=== PATIENT | female | born 1945 | race Caucasian/White ===

== ENCOUNTER → 2016-09-03 | Outpatient (CLI) | payer MEDICARE, OTHER ==
--- NOTE | 2016-09-04 06:50 | RAD ---
Procedure: 3 view left foot Exam Date: 09/03/2016 8:37 AM CDT Ordering Provider: ROGER ARZATE Clinical Indication: PAIN IN LEFT FOOT Comparison: None FINDINGS: Diffuse osteopenia. Postsurgical changes seen within the medial malleolus and distal first metatarsal from prior osteotomy for first MTP joint degenerative changes. There is moderate to severe first MTP joint degenerative changes noted.. No fracture or dislocation. No lytic or sclerotic lesions. No radiopaque foreign body. No subcutaneous gas evident. IMPRESSION: 1. Diffuse osteopenia with degenerative and postsurgical changes as above. No acute finding within the left foot. Electronically signed by: Guillermo Thomas MD 09/04/2016 6:49 AM CDT
== END | disposition home or self-care (01) ==
LOC: RAD 08:30
PROVIDERS: ATTEND Orthopaedic Surgery
DX: M79.672 Pain in left foot (principal)

== ENCOUNTER 2017-07-20 19:13 | Emergency (ER) | payer MEDICARE, OTHER ==
[2017-07-20] MEDS ORDERED: ONDANSETRON ODT 8 MG TAB SL ONE (20:00)
[2017-07-20] MEDS ORDERED: MORPHINE SULFATE INJ 10 MG/ML VIAL IM ONE (20:00)
--- NOTE | 2017-07-20 20:20 | RAD ---
Examination: XR FOOT 3 OR MORE VIEWS dated 07/20/2017 7:31 PM [facility] [employer]NER History: fall from standing left knee and foot pain Comparison: 09/03/2016 Technique: Three views of the left foot FINDINGS: Diffuse osteopenia limits evaluation for subtle fractures. Two screws within the first metatarsal from prior osteotomy. Medial malleolus fixation screws are also present. Moderate degenerative changes of the first MTP joint. No acute fracture of the right foot. No dislocation. IMPRESSION: Osteopenia with postsurgical changes as above. No acute fracture. Electronically signed by: Sarthak Galaviz MD 07/20/2017 8:20 PM [facility]
--- NOTE | 2017-07-20 20:21 | RAD ---
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 No significant joint effusion. Mild degenerative changes. IMPRESSION: No acute findings. Electronically signed by: Sarthak Galaviz MD 07/20/2017 8:20 PM [employer] RECEIVING CLERK
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
[2017-07-20 21:30] VITALS: BP 136/81; TEMP 98.2; O2SAT 95
== END 2017-07-20 21:12 | disposition home or self-care (01) ==
LOC: ER 19:13
DX: S96.912A Strain of unspecified muscle and tendon at ankle and foot level, left foot, initial encounter (principal); S83.90XA Sprain of unspecified site of unspecified knee, initial encounter; S90.32XA Contusion of left foot, initial encounter; W17.89XA Other fall from one level to another, initial encounter
CPT/HCPCS: 73560; 73630; J2270

== ENCOUNTER → 2018-04-12 | Outpatient (CLI) | payer MEDICARE, OTHER ==
--- NOTE | 2018-04-15 09:19 | RAD ---
EXAM DESCRIPTION: Foot,Left 3 Views CLINICAL HISTORY: PAIN IN LEFT FOOT COMPARISON: July 20, 2017. TECHNIQUE: AP, LATERAL, AND OBLIQUE FINDINGS: The visualized bones appear severely osteopenic. Fracture of the head of the fifth metatarsal is noted with associated soft tissue swelling. Plantar and posterior calcaneal spurs are noted.. IMPRESSION: Fracture of the head of the fifth metatarsal is noted with associated soft tissue swelling. Electronically signed by: Yunior Monge MD 04/15/2018 9:17 AM [facility]
== END ==
LOC: RAD 07:51
PROVIDERS: ATTEND Orthopaedic Surgery
DX: S92.302A Fracture of unspecified metatarsal bone(s), left foot, initial encounter for closed fracture (principal)

== ENCOUNTER → 2019-01-09 | Outpatient (CLI) | payer MEDICARE, OTHER ==
--- NOTE | 2019-01-09 11:05 | RAD ---
EXAM DESCRIPTION: Chest,2 Views: YOUSUF/ CLINICAL HISTORY: 73 years Female COUGH COMPARISON: 2 view chest x-ray 01/30/2016. TECHNIQUE: Two views. PA and Lateral. FINDINGS: Lungs: Perihilar 5 mm radiodense nodule, left mid lung, stable. Senescent changes bilateral lung bases are stable no consolidation. Pleural spaces: No effusion or pneumothorax bilaterally. Heart: Upper normal limits. Pulmonary Vascularity: Not increased. Mediastinum: Not widened. Aorta: Unremarkable. Bony Thorax/Spine: No acute bony thoracic abnormalities. Decreased bone density. IMPRESSION: Stable nodule versus pulmonary vascular structure abutting the left hilum. No acute infiltrate. Senescent lungs are stable. Electronically signed by: Pedro Zaidi MD 01/09/2019 11:04 AM CDT
--- NOTE | 2019-01-09 20:05 | CT ---
EXAM DESCRIPTION: Abdomen/Pelvis w/wo Contrast: Computed Tomography. CLINICAL HISTORY: ABDOMINAL PAIN COMPARISON: CT scan of the abdomen and pelvis with contrast 06/11/2012. TECHNIQUE: Spiral-axial scans at 5 x 5 mm intervals through the abdomen and pelvis before and after 75 mL Optiray 320 nonionic IV contrast. No oral contrast. Coronal and sagittal 6.0 mm MIP reconstructions. 5 mm Delayed helical-axial scans, liver through the pubic symphysis. No adverse reactions. Total Exam DLP 1038.4 mGy - cm. This exam was performed according to our departmental CT dose-optimization program which includes automated exposure control, adjustment of the mA and/or kV according to patient size and/or use of iterative reconstruction technique; to reduce radiation dose to as low as reasonably achievable (ALARA). FINDINGS: Lung bases and pleura: Pleural parenchymal scarring inferior lingula. Also left lower lobe with volume loss. This is stable. Liver, Stomach, Spleen, Adrenal Glands: Hypoechoic mass in the lateral superior right hepatic lobe measuring 2.2 x 2.0 cm with peripheral vascularity on the portal venous phase and almost completely enhancing on the 5 minute delayed image more than the surrounding parenchyma. This has enlarged since the prior study and is most likely a hemangioma. A similar mass with similar imaging characteristics measuring approximately 1.3 cm diameter in the inferior medial right lobe lateral to the nellie hepatis is stable since the prior study. Pancreas, Gallbladder, Ducts: Gallbladder is visualized. Minimal enhancement in the neck of the gallbladder which was also seen on the prior study. Pancreas is unremarkable. Kidneys and Ureters: Negative. Mesentery: Bilateral pararenal stranding is symmetric and physiologic. No free air or free fluid. Aorta: Moderate atherosclerotic calcification and distal narrowing with calcification of some of the ostia of the major branch vessels. Small Bowel: Minimal distention of segments of the jejunum with fluid but no fatty inflammatory changes minimal fluid in the ileum.. Terminal Ileum/Cecum: Fluid in the terminal ileum and distention of the cecum with fluid and fecal material and small air-fluid level. The cecum is impressing on the urinary bladder. Appendix is not visualized. Edema in the ahn of the cecum. Colon: Fluid in the ascending colon with edema in the ahn. Adjacent cysts stranding in the fatty mesentery. Fecal matter in the mid colon. Diverticula beginning at the splenic flexure and continuing to the sigmoid. Wall thickening in the mid and distal descending colon and proximal sigmoid with minimal adjacent fatty stranding. Moderate redundancy of the sigmoid colon. Pelvic Organs: Urinary bladder with mass effect. No radiodense stones. No free fluid and no other pelvic organs are seen. Spine and Bony Pelvis: Minimal spondylosis in the included segments of the lumbar spine. Abdominal Wall/Back Soft Tissues: Minimal diastases of the midline lower abdominal and pelvic wall but no hernia. IMPRESSION: 1. 2.2 cm delayed enhancing mass in the upper right lobe of the liver consistent with a hemangioma, and has increased in size since the prior study. Inferior medial 1.3 cm hemangioma in the right lobe is stable in size. 2. Mild distention of the jejunum with fluid with diffuse fluid in the remainder of the intestine. No small bowel obstruction. Distention of the cecum with fluid and minimal edema in the ahn of the ascending colon. This could represent a viral enteritis along with a nonspecific inflammatory process in the ascending colon. Mild diverticulitis in the distal descending colon and proximal sigmoid colon with no obstruction, no free air, and no abscess formation. Electronically signed by: Pedro Zaidi MD 01/09/2019 8:03 PM CDT
== END ==
LOC: CT 08:00
PROVIDERS: ATTEND Obstetrics & Gynecology
DX: K57.32 Diverticulitis of large intestine without perforation or abscess without bleeding (principal); K76.9 Liver disease, unspecified; K63.9 Disease of intestine, unspecified; R91.8 Other nonspecific abnormal finding of lung field; D64.9 Anemia, unspecified; R53.81 Other malaise

== ENCOUNTER → 2019-07-15 | Outpatient (CLI) | payer MEDICARE, OTHER ==
--- NOTE | 2019-07-15 16:30 | RAD ---
EXAM: Fingers,Left CLINICAL INDICATION: Left ring finger trauma, pain COMPARISON: There is no previous study for comparison. FINDINGS: 3 views of the left ring finger reveal a nondisplaced fracture of the distal phalanx which is longitudinally oriented seen best on the AP and oblique views. No other fracture or dislocation is seen. Soft tissue swelling of the tip of the finger is identified. IMPRESSION: Nondisplaced fracture of the distal phalanx of the left ring finger. Electronically signed by: To Hernandez MD 07/15/2019 4:28 PM [facility]
== END ==
LOC: RAD 16:06
PROVIDERS: ATTEND Physician Assistant
DX: S62.661A Nondisplaced fracture of distal phalanx of left index finger, initial encounter for closed fracture (principal)